=== PATIENT | male | born 1940 | race Caucasian/White ===

== ENCOUNTER 2017-12-25 13:32 | Observation (INO) | payer MEDICARE, OTHER ==
[~2017-12-25] VITALS: Ht 182.9 cm; Wt 99.2 kg
[~2017-12-25 13:32] MED LIST: AGGR20025 PO; ATEN1TAB55 OR; CRES20TA PO; ENAL20TA81 PO; LORT5TAB PO; ZOVI800T13 PO
[2017-12-25 13:39] VITALS: BP 185/84; PULSE 79; RESP 16; TEMP 98.2; O2SAT 96
[2017-12-25 14:17] VITALS: BP 173/91; PULSE 50; RESP 20; O2SAT 98
[2017-12-25] MEDS ORDERED: METF500T PO (14:19)
[2017-12-25] MEDS ORDERED: AGGR20025 PO (14:19)
[2017-12-25] MEDS ORDERED: NEUR600T PO (14:19)
[2017-12-25] MEDS ORDERED: VASO10TA8 PO (14:19)
[2017-12-25] MEDS ORDERED: ASPI-183 PO (14:19)
[2017-12-25 14:30] VITALS: O2SAT 95
[2017-12-25 14:42] LABS: AUTOMATED NEUTROPHIL # 1.7 TH/MM3 (1.8-7.7); BASOPHIL # 0.1 TH/MM3 (0-0.2); BASOPHIL % 1.4 % (0.0-2.0); EOSINOPHIL # 0.1 TH/MM3 (0-0.4); EOSINOPHIL % 3.5 % (0.0-4.0); HEMATOCRIT 40.3 % (39.0-51.0); HEMOGLOBIN 13.2 GM/DL (13.0-17.0); LYMPH % 42.3 % (9.0-44.0); LYMPHOCYTE # 1.6 TH/MM3 (1.0-4.8); MEAN CELL VOLUME 87.9 FL (80.0-100.0); MEAN CORPUSCULAR HEMOGLOBIN 28.7 PG (27.0-34.0); MEAN CORPUSCULAR HGB CONC 32.7 % (32.0-36.0); MEAN PLATELET VOLUME 8.3 FL (7.0-11.0); MONO % 8.8 % (0.0-8.0); MONOCYTE # 0.3 TH/MM3 (0-0.9); PLATELET COUNT 151 TH/MM3 (150-450); RED BLOOD COUNT 4.58 MIL/MM3 (4.50-5.90); RED CELL DISTRIBUTION WIDTH 13.1 % (11.6-17.2); WHITE BLOOD COUNT 3.8 TH/MM3 (4.0-11.0)
[2017-12-25 14:51] LABS: CHLORIDE 110 MEQ/L (98-107); SODIUM (NA) 139 MEQ/L (136-145)
[2017-12-25 14:54] LABS: CALCIUM 8.5 MG/DL (8.5-10.1)
[2017-12-25 14:55] LABS: ALBUMIN 3.9 GM/DL (3.4-5.0); BICARBONATE 21.1 MEQ/L (21.0-32.0); BLOOD UREA NITROGEN 24 MG/DL (7-18); GLUCOSE,RANDOM 103 MG/DL (74-106); MAGNESIUM 1.8 MG/DL (1.5-2.5)
--- NOTE | 2017-12-25 14:55 | PD ---
HPI Chief Complaint: Cardiac Complaint Time Seen by Provider: 14:22 Travel History International Travel<30 days: No Contact w/Intl Traveler<30days: No Traveled to known affect area: No History of Present Illness HPI 77-year-old male presents stating that his heart rate has been running low at night and he's felt generally weak. He states his machine states it is also ill regular at night. He states he got the machine to monitor his blood pressure as it has been hard to control. He states he's also been intermittently getting headaches. He denies any chest pain, shortness of breath or other concurrent complaints. He denies history of atrial fibrillation. Quality is low. Severity he states gets down into the 30s. He denies specific modifying factors. PFSH Past Medical History Hx Anticoagulant Therapy: Yes (AGGRENOX,ASA) High Cholesterol: Yes Cerebrovascular Accident: Yes Diabetes: Yes Patient Takes Glucophage: Yes Hypertension: Yes Past Surgical History Other Surgery: Yes (VARICOSE VEINS REMOVED) Social History Alcohol Use: No Tobacco Use: No Substance Use: No Allergies-Medications (Allergen,Severity, Reaction): Coded Allergies: No Known Allergies (Unverified Adverse Reaction, Unknown, 12/25/17) Reported Meds & Prescriptions Reported Meds & Active Scripts Active Reported Metformin (Metformin HCl) 500 Mg Tab 500 Mg PO TIDPC Neurontin (Gabapentin) 600 Mg Tab 1,200 Mg PO HS Aspirin 325 Mg Tab 325 Mg PO DAILY Vasotec (Enalapril Maleate) 10 Mg Tab 10 Mg PO BID Aggrenox (Dipyridamole/Aspirin) 200-25 Mg Cap 2 Cap PO BID Review of Systems Except as stated in HPI: all other systems reviewed are Neg Physical Exam Narrative GENERAL: 77-year-old male in no apparent distress SKIN: Focused skin assessment warm/dry. HEAD: Atraumatic. Normocephalic. EYES: Pupils equal and round. No scleral icterus. No injection or drainage. ENT: No nasal bleeding or discharge. Mucous membranes pink and moist. NECK: Trachea midline. No JVD. CARDIOVASCULAR: Regular rate and rhythm. RESPIRATORY: No accessory muscle use. Clear to auscultation. Breath sounds equal bilaterally. GASTROINTESTINAL: Abdomen soft, non-tender, nondistended. MUSCULOSKELETAL: No obvious deformities. No clubbing. No cyanosis. No edema. NEUROLOGICAL: Awake and alert. No obvious cranial nerve deficits. Motor grossly within normal limits. Normal speech. PSYCHIATRIC: Appropriate mood and affect; insight and judgment normal. Data Data Last Documented VS Vital Signs Date Time Temp Pulse Resp B/P (MAP) Pulse Ox O2 Delivery O2 Flow Rate FiO2 12/25/17 14:30 95 12/25/17 14:17 50 20 12/25/17 13:39 98.2 Orders Orders Magnesium (Mg) (12/25/17 14:17) Phosphorus (Po4) (12/25/17 14:17) Complete Blood Count With Diff (12/25/17 14:17) Comprehensive Metabolic Panel (12/25/17 14:17) Ckmb (Isoenzyme) Profile (12/25/17 14:17) Troponin I (12/25/17 14:17) Act Partial Throm Time (Ptt) (12/25/17 14:17) Prothrombin Time / Inr (Pt) (12/25/17 14:17) Ct Brain W/O Iv Contrast(Rout) (12/25/17 ) Electrocardiogram (12/25/17 ) Iv Access Insert/Monitor (12/25/17 14:17) Ecg Monitoring (12/25/17 14:17) Oximetry (12/25/17 14:17) Chest, Single Ap (12/25/17 ) CKMB (12/25/17 14:25) CKMB% (12/25/17 14:25) Admit Order (Ed Use Only) (12/25/17 15:58) Aspirin (Aspirin) (12/25/17 16:15) Labs Laboratory Tests Test 12/25/17 14:25 White Blood Count 3.8 TH/MM3 Red Blood Count 4.58 MIL/MM3 Hemoglobin 13.2 GM/DL Hematocrit 40.3 % Mean Corpuscular Volume 87.9 FL Mean Corpuscular Hemoglobin 28.7 PG Mean Corpuscular Hemoglobin Concent 32.7 % Red Cell Distribution Width 13.1 % Platelet Count 151 TH/MM3 Mean Platelet Volume 8.3 FL Neutrophils (%) (Auto) 44.0 % Lymphocytes (%) (Auto) 42.3 % Monocytes (%) (Auto) 8.8 % Eosinophils (%) (Auto) 3.5 % Basophils (%) (Auto) 1.4 % Neutrophils # (Auto) 1.7 TH/MM3 Lymphocytes # (Auto) 1.6 TH/MM3 Monocytes # (Auto) 0.3 TH/MM3 Eosinophils # (Auto) 0.1 TH/MM3 Basophils # (Auto) 0.1 TH/MM3 CBC Comment DIFF FINAL Differential Comment Prothrombin Time 10.5 SEC Prothromb Time International Ratio 1.0 RATIO Activated Partial Thromboplast Time 24.7 SEC Blood Urea Nitrogen 24 MG/DL Creatinine 1.10 MG/DL Random Glucose 103 MG/DL Total Protein 7.3 GM/DL Albumin 3.9 GM/DL Calcium Level 8.5 MG/DL Phosphorus Level 3.3 MG/DL Magnesium Level 1.8 MG/DL Alkaline Phosphatase 25 U/L Aspartate Amino Transf (AST/SGOT) 18 U/L Alanine Aminotransferase (ALT/SGPT) 20 U/L Total Bilirubin 0.4 MG/DL Sodium Level 139 MEQ/L Potassium Level 4.4 MEQ/L Chloride Level 110 MEQ/L Carbon Dioxide Level 21.1 MEQ/L Anion Gap 8 MEQ/L Estimat Glomerular Filtration Rate 65 ML/MIN Total Creatine Kinase 185 U/L Creatine Kinase MB 2.9 NG/ML Troponin I 0.07 NG/ML MDM Medical Decision Making Medical Screen Exam Complete: Yes Emergency Medical Condition: Yes Medical Record Reviewed: Yes (past history confirmed) Interpretation(s) EKG is sinus rhythm with bigeminy in the 70s CBC & BMP Diagram 12/25/17 14:25 Total Protein 7.3, Albumin 3.9, Calcium Level 8.5, Phosphorus Level 3.3, Magnesium Level 1.8, Alkaline Phosphatase 25 L, Aspartate Amino Transf (AST/SGOT ) 18, Alanine Aminotransferase (ALT/SGPT) 20, Total Bilirubin 0.4 Last [address] 12/25/17 0000 Signed Impressions: Service Date/Time: Monday, December 25, 2017 15:26 - CONCLUSION: 1. Encephalomalacia throughout the right temporoparietal region consistent with probable old right MCA infarct. 2. Old lacunar infarcts within the right basal ganglia. 3. No acute infarct, acute hemorrhage, midline shift or extra-axial fluid collections. 4. Scattered nonspecific calcified densities within the brain parenchyma as described above. Krishna Kunz MD Chest X-Ray 12/25/17 0000 Signed Impressions: Service Date/Time: Monday, December 25, 2017 14:38 - CONCLUSION: No acute cardiopulmonary disease. Krishna Kunz MD Differential Diagnosis Anemia, electrolyte abnormality, A. fib, SVT, intracranial... Narrative Course Will check blood work, EKG, chest x-ray, CT brain and reevaluate Patient has mildly elevated troponin. Patient agrees to observation in the hospital overnight for further cardiac monitoring Physician Communication Physician Communication dr boone agrees to admit Diagnosis Primary Impression: Weakness generalized Additional Impressions: Bigeminy Elevated troponin Admitting Information Admitting Physician Requests: Observation Wendi Hidalgo MD Dec 25, 2017 14:55
[2017-12-25 14:56] LABS: PROTHROMBIN TIME - PATIENT 10.5 SEC (9.8-11.6)
[2017-12-25 14:58] LABS: ALT (GPT) 20 U/L (12-78); AST (GOT) 18 U/L (15-37); GLOMERULAR FILTRATION RATE 65 ML/MIN (>89); PHOSPHORUS 3.3 MG/DL (2.5-4.9)
[2017-12-25 14:59] LABS: TOTAL BILIRUBIN ADULT 0.4 MG/DL (0.2-1.0); TOTAL PROTEIN 7.3 GM/DL (6.4-8.2)
[2017-12-25 15:01] LABS: ALKALINE PHOSPHATASE 25 U/L (45-117)
[2017-12-25 15:03] LABS: TROPONIN I 0.07 NG/ML (0.02-0.05)
--- NOTE | 2017-12-25 15:37 | RADRPT ---
EXAM DATE/TIME: 12/25/2017 14:38 [facility] COMPARISON: No previous studies available for comparison. INDICATIONS : Chest palpitations MEDICAL HISTORY : None. SURGICAL HISTORY : None. ENCOUNTER: Initial ACUITY: 1 day PAIN SCORE: 0/10 LOCATION: Bilateral chest FINDINGS: The heart is normal in size. The pulmonary vascular pattern is normal. The lungs are clear. CONCLUSION: No acute cardiopulmonary disease. Krishna Kunz MD on December 25, 2017 at 15:34 Board Certified Radiologist. This report was verified electronically.
--- NOTE | 2017-12-25 15:47 | RADRPT ---
EXAM DATE/TIME: 12/25/2017 15:26 [facility] COMPARISON: No previous studies available for comparison. INDICATIONS : Weakness and cephalgia x 2 weeks. RADIATION DOSE: 63.19 CTDIvol (mGy) MEDICAL HISTORY : Cerebrovascular disease. Diabetes mellitus type 2. Cardiovascular diseaseHypertension. SURGICAL HISTORY : None. ENCOUNTER: Initial ACUITY: 2 weeks PAIN SCALE: 5/10 LOCATION: cranial TECHNIQUE: Multiple contiguous axial images were obtained of the head. Using automated exposure control and adj ustment of the mA and/or kV according to patient size, radiation dose was kept as low as reasonably a chievable to obtain optimal diagnostic quality images. DICOM format image data is available electro nically for review and comparison. FINDINGS: CEREBRUM: The ventricles are normal for age. No evidence of midline shift, mass lesion, hemorrhage or acute in farction. No extra-axial fluid collections are seen. Encephalomalacia is noted within the right temp oroparietal region consistent with probable old infarct. Scattered old lacunar infarcts are noted wit hin the right basal ganglia. There are scattered calcified densities throughout the brain parenchyma bilaterally which are nonspecific. These could represent dystrophic calcifications or possible cavita tion as related to vascular lesions. POSTERIOR FOSSA: The cerebellum and brainstem are intact. The 4th ventricle is midline. The cerebellopontine angle i s unremarkable. EXTRACRANIAL: The visualized portion of the orbits is intact. SKULL: The calvaria is intact. No evidence of skull fracture. CONCLUSION: 1. Encephalomalacia throughout the right temporoparietal region consistent with probable old right MC A infarct. 2. Old lacunar infarcts within the right basal ganglia. 3. No acute infarct, acute hemorrhage, midline shift or extra-axial fluid collections. 4. Scattered nonspecific calcified densities within the brain parenchyma as described above. Krishna Kunz MD on December 25, 2017 at 15:41 Board Certified Radiologist. This report was verified electronically.
[2017-12-25 16:00] VITALS: BP 172/79; PULSE 40; RESP 16; TEMP 96.1; O2SAT 96
[2017-12-25 16:10] VITALS: BP 163/81; PULSE 67; RESP 14; O2SAT 97
[2017-12-25] MEDS ORDERED: NALOXONE HCL 0.4 MG/ML AMP IV PUSH PRN (16:15)
[2017-12-25] MEDS ORDERED: SODIUM CHLORIDE 0.9% FLUSH 10 ML FLUSH IV FLUSH PRN (16:15)
[2017-12-25] MEDS ORDERED: ONDANSETRON HCL 4 MG/2 ML VIAL IVP PRN (16:15)
[2017-12-25] MEDS ORDERED: ASPIRIN 325 MG TAB PO ONE (16:15)
--- NOTE | 2017-12-25 18:52 | HHI.HP ---
[facility] Non-Staff Admission Diagnosis weakness, bigemny, elevated troponin Diagnoses: (1) Weakness generalized Diagnosis: Principal (2) Bigeminy Diagnosis: Principal (3) Elevated troponin Diagnosis: Principal Chief Complaint: Weakness Travel History International Travel<30 Days: No Contact w/Intl Traveler <30 Da: No Traveled to Known Affected Are: No History of Present Illness This is a 77-year-old [place] male who usually lives in [place], however is visiting here for the winter with known history of hypertension, hyperlipidemia , diabetes, CVA. Patient does check his blood pressure and heart rate on a regular basis. He has a normal blood pressure machine which had been running normal and did not indicate any abnormality. However he bought a new machine approximately 2 weeks ago which started showing that he was having in a regular heartbeat, his blood pressure has been more elevated, and his heart rate has been low in the 37-38 range. Patient states that since he's been getting those results he has been noticing more of an uncomfortable feeling, lightheadedness, dizziness, fatigue. There is no physical weakness. He does usually ride his bicycle with his on a regular basis when the weather is good. He denies any actual chest pain, nausea, vomiting, shortness of breath, dyspnea. Because the heart rate was low he came to emergency department for evaluation. Upon evaluation in emergency department patient had EKG performed which did show a heart rate with frequent ventricular premature complexes in a bigeminal pattern. With a heart rate of 73. Because the patient's symptoms and his subjective bradycardia is recommended by the ER physician that the patient be observed overnight on telemetry for further recommendations. Laboratory studies did indicate an equivocal troponin elevation 0.07, however patient is asymptomatic without any chest pain. Patient is not have any local physicians or campus monitor. They are located in [place]. Review of Systems Constitutional: COMPLAINS OF: Fatigue, Dizziness Except as stated in HPI: all other systems reviewed are Neg Past Family Social History Past Medical History Hypertension Hyperlipidemia Diabetes History CVA Depression Past Surgical History Varicose veins removed from the right leg Reported Medications Reported Meds & Active Scripts Active Reported Metformin (Metformin HCl) 500 Mg Tab 500 Mg PO TIDPC Neurontin (Gabapentin) 600 Mg Tab 1,200 Mg PO HS Aspirin 325 Mg Tab 325 Mg PO DAILY Vasotec (Enalapril Maleate) 10 Mg Tab 10 Mg PO BID Aggrenox (Dipyridamole/Aspirin) 200-25 Mg Cap 2 Cap PO BID Allergies: Coded Allergies: No Known Allergies (Unverified Adverse Reaction, Unknown, 12/25/17) Family History Reviewed is significant for both mother and father with diabetes. No other history of heart disease, stroke, seizures Social History Patient quit smoking 30 years ago, prior to that he smoked a half pack a cigarettes since he was 21 years old. Does drink a glass of wine nightly. Denies any illicit drug use Physical Exam Vital Signs Vital Signs Date Time Temp Pulse Resp B/P (MAP) Pulse Ox O2 Delivery O2 Flow Rate FiO2 12/25/17 17:15 12/25/17 16:10 67 14 163/81 (108) 97 Room Air 12/25/17 16:00 96.1 40 16 172/79 (110) 96 12/25/17 14:30 95 12/25/17 14:17 50 20 173/91 (118) 98 12/25/17 13:39 98.2 79 16 185/84 (117) 96 Physical Exam GENERAL: Well-developed, well-nourished, in no acute distress. alert and orientated HEENT: Head is normocephalic without any lesions or masses noted. Facial features are symmetric. Eyes: Pupils equal round reactive to light. Extraocular muscles are intact. Conjunctivae were clear. Oropharyngeal: Pharynx without any erythema edema. Tongue is midline without deviation. Buccal mucosa is moist without any masses or lesions NECK: Supple without any masses. Trachea midline no deviation. No JVD, no bruits are appreciated CARDIAC: Regular rhythm, regular rate. S1/S2 are heard. No murmurs gallops or rubs. LUNGS: Clear to auscultation bilaterally. No wheeze, rhonchi or rales. No use of accessory muscles on inspiration or expiration. ABDOMEN: Soft, nontender. Nondistended. Bowel sounds heard in all 4 quadrants. No organomegaly or masses. Negative rebound, negative guarding EXTREMITIES: No edema, pulses are equal bilaterally. No cyanosis or clubbing NEUROLOGY: Mood and affect appear appropriate. Cranial nerves II through XII grossly intact. Muscle strength 5/5 in upper and lower extremities bilaterally. Deep tendon reflexes are 2+ in upper and lower extremities bilaterally. Laboratory Laboratory Tests Test 12/25/17 14:25 White Blood Count 3.8 Red Blood Count 4.58 Hemoglobin 13.2 Hematocrit 40.3 Mean Corpuscular Volume 87.9 Mean Corpuscular Hemoglobin 28.7 Mean Corpuscular Hemoglobin Concent 32.7 Red Cell Distribution Width 13.1 Platelet Count 151 Mean Platelet Volume 8.3 Neutrophils (%) (Auto) 44.0 Lymphocytes (%) (Auto) 42.3 Monocytes (%) (Auto) 8.8 Eosinophils (%) (Auto) 3.5 Basophils (%) (Auto) 1.4 Neutrophils # (Auto) 1.7 Lymphocytes # (Auto) 1.6 Monocytes # (Auto) 0.3 Eosinophils # (Auto) 0.1 Basophils # (Auto) 0.1 CBC Comment DIFF FINAL Differential Comment Prothrombin Time 10.5 Prothromb Time International Ratio 1.0 Activated Partial Thromboplast Time 24.7 Blood Urea Nitrogen 24 Creatinine 1.10 Random Glucose 103 Total Protein 7.3 Albumin 3.9 Calcium Level 8.5 Phosphorus Level 3.3 Magnesium Level 1.8 Alkaline Phosphatase 25 Aspartate Amino Transf (AST/SGOT) 18 Alanine Aminotransferase (ALT/SGPT) 20 Total Bilirubin 0.4 Sodium Level 139 Potassium Level 4.4 Chloride Level 110 Carbon Dioxide Level 21.1 Anion Gap 8 Estimat Glomerular Filtration Rate 65 Total Creatine Kinase 185 Creatine Kinase MB 2.9 Troponin I 0.07 Result Diagram: 12/25/17 1425 12/25/17 1425 Imaging Last Impressions Head CT 12/25/17 0000 Signed Impressions: Service Date/Time: Monday, December 25, 2017 15:26 - CONCLUSION: 1. Encephalomalacia throughout the right temporoparietal region consistent with probable old right MCA infarct. 2. Old lacunar infarcts within the right basal ganglia. 3. No acute infarct, acute hemorrhage, midline shift or extra-axial fluid collections. 4. Scattered nonspecific calcified densities within the brain parenchyma as described above. Krishna Kunz MD Chest X-Ray 12/25/17 0000 Signed Impressions: Service Date/Time: Monday, December 25, 2017 14:38 - CONCLUSION: No acute cardiopulmonary disease. MD Porfirio Forman VTE Risk Assessment Caprini VTE Risk Assessment: Mod/High Risk (score >= 2) Caprini Risk Assessment Model Point Value = 1 Point Value = 2 Point Value = 3 Point Value = 5 Age 41-60 Minor surgery BMI > 25 kg/m2 Swollen legs Varicose veins or History of unexplained or recurrent spontaneous Oral contraceptives or hormone replacement Sepsis (< 1 month) Serious lung disease, including pneumonia (< 1 month) Abnormal pulmonary function Acute myocardial infarction Congestive heart failure (< 1 month) History of inflammatory bowel disease Medical patient at bed rest Age 61-74 Arthroscopic surgery Major open surgery (> 45 min) Laparoscopic surgery (> 45 min) Malignancy Confined to bed (> 72 hours) Immobilizing plaster cast Central venous access Age >= 75 History of VTE Family history of VTE Factor V Leiden Prothrombin 55212I Lupus anticoagulant Anticardiolipin antibodies Elevated serum homocysteine Heparin-induced thrombocytopenia Other congenital or acquired thrombophilia Stroke (< 1 month) Elective arthroplasty Hip, pelvis, or leg fracture Acute spinal cord injury (< 1 month) Prophylaxis Regimen Total Risk Factor Score Risk Level Prophylaxis Regimen 0-1 Low Early ambulation 2 Moderate Order ONE of the following: *Sequential Compression Device (SCD) *Heparin 5000 units SQ BID 3-4 Higher Order ONE of the following medications: *Heparin 5000 units SQ TID *Enoxaparin/Lovenox 40 mg SQ daily (WT < 150 kg, CrCl > 30 mL/min) *Enoxaparin/Lovenox 30 mg SQ daily (WT < 150 kg, CrCl > 10-29 mL/min) *Enoxaparin/Lovenox 30 mg SQ BID (WT < 150 kg, CrCl > 30 mL/min) AND/OR *Sequential Compression Device (SCD) 5 or more Highest Order ONE of the following medications: *Heparin 5000 units SQ TID (Preferred with Epidurals) *Enoxaparin/Lovenox 40 mg SQ daily (WT < 150 kg, CrCl > 30 mL/min) *Enoxaparin/Lovenox 30 mg SQ daily (WT < 150 kg, CrCl > 10-29 mL/min) *Enoxaparin/Lovenox 30 mg SQ BID (WT < 150 kg, CrCl > 30 mL/min) AND *Sequential Compression Device (SCD) Assessment and Plan Assessment and Plan Symptomatic sinus arrhythmia with subjective bradycardia EKG does show sinus rhythm with frequent ventricular premature complexes in bigeminal pattern Continue monitor patient on telemetry overnight Get physical therapy evaluation CT scan of the brain was performed which did not indicate any acute abnormality. Did indicate old right MCA infarct Equivocal troponin elevation Patient is asymptomatic We'll continue to follow troponin level Hypertension, history CVA Home medications have been resumed Diabetes Diabetic diet Metformin continued DVT prevention sequential compression devices Bert Galeana Dec 25, 2017 18:52
[2017-12-25 20:00] VITALS: BP 176/78; PULSE 58; RESP 20; TEMP 96.8; O2SAT 97
[2017-12-25] MEDS ORDERED: GABAPENTIN 300 MG CAP PO SCH (21:00)
[2017-12-25] MEDS: DIPYRIDAMOLE/ASPIRIN 200 MG/25 MG CAP PO SCH (21:25)
[2017-12-25] MEDS: ENALAPRIL MALEATE 10 MG TAB PO SCH (21:25)
[2017-12-25] MEDS: SODIUM CHLORIDE 0.9% FLUSH 10 ML FLUSH IV FLUSH SCH (21:28)
[2017-12-25] MEDS ORDERED: TEMAZEPAM 15 MG CAP PO ONE (22:15)
[2017-12-26] VITALS: BP 140/90; PULSE 48; RESP 20; TEMP 96; O2SAT 95
[2017-12-26 04:00] VITALS: BP 104/65; PULSE 60; RESP 20; TEMP 96; O2SAT 95
[2017-12-26 07:31] LABS: AUTOMATED NEUTROPHIL # 2.3 TH/MM3 (1.8-7.7); BASOPHIL # 0.1 TH/MM3 (0-0.2); BASOPHIL % 1.4 % (0.0-2.0); EOSINOPHIL # 0.2 TH/MM3 (0-0.4); EOSINOPHIL % 3.2 % (0.0-4.0); HEMATOCRIT 38.6 % (39.0-51.0); HEMOGLOBIN 12.6 GM/DL (13.0-17.0); LYMPH % 39.1 % (9.0-44.0); MEAN CELL VOLUME 89.1 FL (80.0-100.0); MEAN CORPUSCULAR HEMOGLOBIN 29.1 PG (27.0-34.0); MEAN CORPUSCULAR HGB CONC 32.7 % (32.0-36.0); MEAN PLATELET VOLUME 8.6 FL (7.0-11.0); MONO % 8.3 % (0.0-8.0); MONOCYTE # 0.4 TH/MM3 (0-0.9); PLATELET COUNT 137 TH/MM3 (150-450); RED BLOOD COUNT 4.33 MIL/MM3 (4.50-5.90); RED CELL DISTRIBUTION WIDTH 13.2 % (11.6-17.2)
[2017-12-26 07:48] LABS: CHLORIDE 109 MEQ/L (98-107); SODIUM (NA) 140 MEQ/L (136-145)
[2017-12-26 07:59] LABS: ALBUMIN 3.5 GM/DL (3.4-5.0); BICARBONATE 22.3 MEQ/L (21.0-32.0); BLOOD UREA NITROGEN 26 MG/DL (7-18); CALCIUM 8.1 MG/DL (8.5-10.1); GLUCOSE,RANDOM 104 MG/DL (74-106)
[2017-12-26 08:00] VITALS: BP 116/58; PULSE 61; RESP 18; TEMP 97; O2SAT 93
[2017-12-26 08:02] LABS: ALT (GPT) 20 U/L (12-78); AST (GOT) 18 U/L (15-37); GLOMERULAR FILTRATION RATE 54 ML/MIN (>89)
[2017-12-26 08:04] LABS: TOTAL BILIRUBIN ADULT 0.4 MG/DL (0.2-1.0); TOTAL PROTEIN 6.6 GM/DL (6.4-8.2)
[2017-12-26 08:05] LABS: ALKALINE PHOSPHATASE 23 U/L (45-117)
[2017-12-26 08:07] LABS: TROPONIN I 0.07 NG/ML (0.02-0.05)
[2017-12-26] MEDS ORDERED: metFORMIN HCL 500 MG TAB PO SCH (09:30)
--- NOTE | 2017-12-26 09:33 | HHI.PR ---
Subjective Remarks Patient seen and examined today for follow-up on bigeminy, equivocal troponin. Patient continues to remain a symptomatic for any chest discomfort. Patient states that he slept very well last night and feels great today. Vital signs are stable, afebrile Objective Vitals Vital Signs Date Time Temp Pulse Resp B/P (MAP) Pulse Ox O2 Delivery O2 Flow Rate FiO2 12/26/17 08:00 97.0 61 18 116/58 (77) 93 12/26/17 04:00 96.0 60 20 104/65 (78) 95 Manual Cuff/Auscultation 12/26/17 00:00 96.0 48 20 140/90 (107) 95 Automatic Cuff 12/25/17 20:00 96.8 58 20 176/78 (110) 97 12/25/17 17:15 12/25/17 16:10 67 14 163/81 (108) 97 Room Air 12/25/17 16:00 96.1 40 16 172/79 (110) 96 12/25/17 14:30 95 12/25/17 14:17 50 20 173/91 (118) 98 12/25/17 13:39 98.2 79 16 185/84 (117) 96 I/O 12/25/17 12/25/17 12/25/17 12/26/17 12/26/17 12/26/17 06:59 14:59 22:59 06:59 14:59 22:59 Intake Total 0 ml 240 ml Balance 0 ml 240 ml Intake Oral 0 ml 240 ml # Voids 3 # Bowel Movements 0 Result Diagram: 12/26/17 0610 12/26/17 0610 Objective Remarks GENERAL: Well-developed, well-nourished, in no acute distress. alert and orientated HEENT: Head is normocephalic without any lesions or masses noted. Facial features are symmetric. Eyes: Extraocular muscles are intact. Conjunctivae were clear. NECK: Supple without any masses. Trachea midline no deviation. No JVD, CARDIAC: Regular rhythm, regular rate. S1/S2 are heard. No murmurs gallops or rubs. LUNGS: Clear to auscultation bilaterally. No wheeze, rhonchi or rales. No use of accessory muscles on inspiration or expiration. ABDOMEN: Soft, nontender. Nondistended. Bowel sounds heard in all 4 quadrants. No organomegaly or masses. Negative rebound, negative guarding EXTREMITIES: No edema, pulses are equal bilaterally. No cyanosis or clubbing NEUROLOGY: Mood and affect appear appropriate. Cranial nerves II through XII grossly intact. Moving all extremities, speech is clear Urinary Catheter: No Vascular Central Line Catheter: No A/P Assessment and Plan Sinus arrhythmia: bigeminy and trigeminy with subjective bradycardia EKG does show sinus rhythm with frequent ventricular premature complexes in bigeminal pattern Reviewed telemetry throughout the patient's entire stay. There is no episodes of any bradycardia. Does still show bigeminy and trigeminy CT scan of the brain was performed which did not indicate any acute abnormality. Did indicate old right MCA infarct Discussed with the patient that he needs to follow-up with primary medical doctor they may need to have a Holter monitor or 30 day monitor placed for further evaluation Equivocal troponin elevation Patient still asymptomatic Troponin level remained flat without any changes Hypertension, history CVA Home medications have been resumed Diabetes Diabetic diet Metformin continued DVT prevention sequential compression devices Discharge Planning Discharge home in stable condition Activity: Ad max. Diet: Healthy heart diet Medication per medication reconciliation Follow-up with primary medical doctor in 1 week Bert Galeana Dec 26, 2017 09:32
--- NOTE | 2017-12-26 09:39 | HHI.DCPOC ---
Discharge Care Plan Diagnosis: (1) Bigeminy (2) Elevated troponin Goals to Promote Your Health * To prevent worsening of your condition and complications * To maintain your health at the optimal level Directions to Meet Your Goals Take your medications as prescribed Follow your dietary instruction Follow activity as directed Keep your appointments as scheduled Take your immunizations and boosters as scheduled If your symptoms worsen call your PCP, if no PCP go to Urgent Care Center or Emergency Room Smoking is Dangerous to Your Health. Avoid second hand smoke Call the 24-hour hour crisis hotline for domestic abuse at Bert Galeana Dec 26, 2017 09:39
[2017-12-26] MEDS: SODIUM CHLORIDE 0.9% FLUSH 10 ML FLUSH IV FLUSH SCH (10:05)
[2017-12-26] MEDS: DIPYRIDAMOLE/ASPIRIN 200 MG/25 MG CAP PO SCH (10:06)
[2017-12-26] MEDS: ENALAPRIL MALEATE 10 MG TAB PO SCH (10:06)
[2017-12-26] MEDS ORDERED: REST15CA PO (10:28)
--- NOTE | 2017-12-26 18:06 | EKG ---
Date Performed: 12/25/2017 Time Performed: 13:51:21 PTAGE: 77 years EKG: Sinus rhythm WITH FREQUENT VENTRICULAR PREMATURE COMPLEXES IN A BIGEMINAL PATTERN ABNORMAL RHYTHM ECG NO PREVIOUS TRACING DOCTOR: Kishor Bishop Interpretating Date/Time 12/26/2017 18:05:15
--- NOTE | 2017-12-26 18:07 | EKG ---
Date Performed: 12/25/2017 Time Performed: 20:23:27 PTAGE: 77 years EKG: Sinus rhythm WITH FREQUENT VENTRICULAR PREMATURE COMPLEXES IN A BIGEMINAL PATTERN ABNORMAL RHYTHM ECG Since PREVIOUS TRACING , no significant change noted PREVIOUS TRACIN12/25/2017 13.51 DOCTOR: Kishor Bishop Interpretating Date/Time 12/26/2017 18:06:08
== END 2017-12-26 10:54 | disposition home or self-care (01) ==
LOC: PHED 13:32 → PHEDA 15:59 → PH3B 17:16
PROVIDERS: ADMIT Hospitalist; ATTEND Hospitalist
DX: R53.1 Weakness (principal); R00.1 Bradycardia, unspecified; R74.8 Abnormal levels of other serum enzymes; R42 Dizziness and giddiness; R53.83 Other fatigue; I10 Essential (primary) hypertension; I49.3 Ventricular premature depolarization; R94.31 Abnormal electrocardiogram [ECG] [EKG]; E11.9 Type 2 diabetes mellitus without complications; E78.00 Pure hypercholesterolemia, unspecified; G93.89 Other specified disorders of brain; F32.9 Major depressive disorder, single episode, unspecified; Z79.899 Other long term (current) drug therapy; Z79.82 Long term (current) use of aspirin; Z79.84 Long term (current) use of oral hypoglycemic drugs; Z87.891 Personal history of nicotine dependence; Z86.73 Personal history of transient ischemic attack (TIA), and cerebral infarction without residual deficits
CPT/HCPCS: 70450; 71045; 80053; 82550; 82552; 83735; 84100; 84484; 85025; 85610; 85730; 93005; 99285; G0378